=== PATIENT | female | born 1990 | race Caucasian/White ===

== ENCOUNTER → 2020-04-27 | Day surgery (SDC) | payer OTHER ==
[2020-04-24 12:39] LABS: BASOPHILS # (AUTO) 0.1 (0.0-0.1); BASOPHILS % 1.1 % (0.0-1.0); EOSINOPHILS # (AUTO) 0.1 (0.0-0.4); EOSINOPHILS % 1.9 % (0.0-6.0); HEMATOCRIT 40.3 % (34.2-44.1); LYMPHOCYTES # (AUTO) 1.7 (1.0-3.2); LYMPHOCYTES % 27.6 % (18.0-39.1); MEAN CORPUSCULAR HEMOGLOBIN 30.9 pg (28-32); MEAN CORPUSCULAR HGB CONC 32.3 g/dL (31-35); MEAN CORPUSCULAR VOLUME 95.7 fL (81-99); MONOCYTES # (AUTO) 0.4 (0.2-0.8); MONOCYTES % 6.3 % (4.4-11.3); NEUTROPHILS % 62.9 % (38.7-80.0); PLATELET COUNT 219 x10e3/uL (140-360); RED BLOOD COUNT 4.21 x10e6/uL (3.6-5.1); RED CELL DISTRIBUTION WIDTH 12.9 % (11.7-14.4)
[~2020-04-27] MED LIST: BUPIVACAINE 0.25%/EPI 30ML SDV INJ ONE; DESFLURANE 240 ML BTL INH ONE; DEXAMETHASONE SOD PHOS INJ 4 MG/ML VIAL ONE; ETOMIDATE 2 MG/ML 10 ML INJ IV ONE; GLYCOPYRROLATE INJ 0.2 MG/ML VIAL ONE; LIDOCAINE HCL 2% LOCAL INJ 5 ML SDV VIAL INJ ONE; NEOSTIGMINE 1 MG/ML 10ML VIAL ONE; ONDANSETRON HCL INJ 2MG/ML 2ML 2 MG/ML VIAL ONE; ONE-A-DAY PREN1 EAC1 PO
[2020-04-27 15:00] VITALS: BP 105/51
--- NOTE | 2020-04-27 17:50 | Operative Report ---
DATE OF PROCEDURE: 04/27/2020 SURGEON: Isaías Lacey MD PREOPERATIVE DIAGNOSIS: Desires elective sterilization. POSTOPERATIVE DIAGNOSIS: Desires elective sterilization. TITLE OF PROCEDURE: Bilateral tubal occlusion with cautery. ANESTHESIA: General; with Dr. Pelayo. INDICATION FOR OPERATION: The patient is a 29-year-old 3, para 3-0-0-3, status post normal spontaneous vaginal delivery; 4 months ago, who presents requesting elective sterilization. The risks, benefits, permanence, and failure rate of the procedure 1% were explained in detail. The patient understanding that she chooses tubal ligation for permanent contraception. She was therefore, taken to the operating room at this time. It should also be mentioned that she was scheduled for tubal 3 months ago, but elective surgery was canceled and has finally been reinstituted when it is safe to proceed, and she also has been tested for the COVID virus and is negative. She is therefore, taken to the operating room at this time. FINDINGS OF SURGERY: There was normal uterus, tubes, and ovaries. DESCRIPTION OF PROCEDURE: The patient was taken to the operating room and placed on the table in a supine position. General anesthesia was administered. The patient was then placed in the lithotomy position. The perineum was prepared and draped in the usual sterile manner as was the abdomen. Pelvic exam revealed a normal-sized anteverted uterus with no adnexal masses. A sponge stick was placed in the vagina after the bladder had been drained by in and out catheterization. Then, the foot miter operator changed gloves, and a small incision was made just inferior to the umbilicus in the midline. The Veress needle was inserted through the incision into the peritoneal cavity. A pneumoperitoneum was created by insufflation of 3 L of carbon dioxide gas and a filling pressure of 4 to 10 mmHg. The Veress needle was removed. The trocar was inserted through the incision into the peritoneal cavity. The laparoscope was placed with confirmation of the peritoneal cavity being entered. A 2nd trocar was placed in a midline suprapubic incision under direct visualization by laparoscopy. The trocar was removed and a probe was placed, and the contents of the abdomen and pelvis were visualized with findings of normal uterus, tubes, and ovaries. Attention was then turned to the right tube, it was grasped in the mid ampullary portion, traced to the fimbriated end for positive identification. The mid ampullary portion of the tube was then occluded using the LigaSure instrument. Cautery was applied in 3 spots until it was apparent that the tube was completely desiccated and occluded. At this point, it was apparent that the right tube was completely occluded and attention was turned to the left tube. The left tube was grasped in the ampullary portion. First, the fimbriated end for positive identification. The anterior portion of the tube was then occluded using cautery from the LigaSure instrument. Cautery was applied in 3 spots until it was apparent that the tube was completely occluded in all 3 spots. Then, the tube was inspected, it was apparent there was completely occluded as the tubes have been completely desiccated. At this point, there was a small amount of blood noted in the anterior to the uterus on top of the bladder and this was irrigated and suctioned, and no further bleeding was noted, and then the procedure was deemed terminated. All the air and instruments were removed from the abdomen. The sponge stick was removed from the vagina, thus completing the procedure. The skin incisions were closed with inverted stitches of 4-0 Monocryl suture. There were no complications were noted. Estimated blood loss was 5 mL. The patient tolerated the procedure well, was transferred from the operating room to the recovery room in stable condition. MD LIONEL Morgan/MODL /[id number]
== END | disposition home or self-care (01) ==
LOC: OR 10:00
PROVIDERS: ATTEND Obstetrics & Gynecology
DX: Z30.2 Encounter for sterilization (principal); Z01.812 Encounter for preprocedural laboratory examination; Z11.59 Encounter for screening for other viral diseases; Z86.2 Personal history of diseases of the blood and blood-forming organs and certain disorders involving the immune mechanism
CPT/HCPCS: 36415; 58670; 84702; 85025; 87635; J1100; J2001; J2405; J2710